=== PATIENT | male | born 2000 | race Asian ===

== ENCOUNTER 2024-05-25 18:08 | Emergency (ER) | payer OTHER, SELFPAY ==
[2024-05-25 18:43] VITALS: BP 173/82; PULSE 57; RESP 19; TEMP 36.9; O2SAT 98; BMI 27.9
--- NOTE | 2024-05-25 19:06 | EDNOTE_ITS ---
ED Wound/Laceration-RME/HPI General Chief Complaint: Wound/Laceration Stated Complaint: LACERATION TO LEFT 3RD FINGER Time Seen by Provider: 05/25/24 19:03 Source: patient Arrival date/time: 05/25/24 18:08 24-year-old male with no past medical history presents emergency department complaining of laceration to left third digit with vp delivery. Patient is unsure if up-to-date with tetanus vaccine. Offered vaccine patient declined. Mode of arrival: ambulatory Limitations: no limitations Related Data Previous Rx's ?Medication ?Instructions ?Recorded cephalexin 500 mg capsule 500 mg PO BID 5 days #10 caps 05/25/24 ibuprofen 600 mg tablet 600 mg PO Q8H PRN pain #20 tabs 05/25/24 Allergies Allergy/AdvReac Type Severity Reaction Status Date / Time No Known Allergies Allergy Verified 05/25/24 18:09 Review of Systems Review of Systems Systems Reviewed: All systems reviewed, normal except as documented Constitutional Constitutional: Reports system reviewed and no additional complaints, except as documented, Denies body ache(s), Denies chills and Denies fever(s) Eyes Eyes: Reports system reviewed and no additional complaints, except as documented and Denies change in vision ENT Ears, Nose, Mouth, and Throat: Reports system reviewed and no additional complaints, except as documented, Denies disequilibrium, Denies dizziness, Denies sore throat and Denies vertigo Cardiovascular Cardiovascular: Reports system reviewed and no additional complaints, except as documented, Denies chest pain and Denies dyspnea Respiratory Respiratory: Reports system reviewed and no additional complaints, except as documented, Denies chest congestion, Denies cough and Denies dyspnea Gastrointestinal Gastrointestinal: Reports system reviewed and no additional complaints, except as documented, Denies abdominal pain, Denies nausea and Denies vomiting Musculoskeletal Musculoskeletal: Reports system reviewed and no additional complaints, except as documented, Denies abnormal gait and Denies arthralgias Integumentary/Breasts Skin/Breast: Reports system reviewed and no additional complaints, except as documented, Denies erythema, Denies rash and Reports wounds (Laceration) Neurologic Neurologic: Reports system reviewed and no additional complaints, except as documented, Denies abnormal gait, Denies disequilibrium, Denies dizziness and Denies vertigo Past Medical History Past Medical History CARDIAC: Negative Congestive Heart Failure RESPIRATORY: Negative Chronic Obstructive Pulmonary Disease (COPD) GENITOURINARY: Negative Renal Disease ENDOCRINE: Negative Diabetes Mellitus Type 1 or Diabetes Mellitus Type 2 Social History SMOKING STATUS: Never smoker ED Exam General Limitations: Present no limitations General appearance: Present alert and in no apparent distress Head Head exam: Present atraumatic Eye Eye exam: Present normal appearance, PERRL and EOMI ENT ENT exam: Present normal exam, normal oropharynx and mucous membranes moist Neck Neck exam: Present normal inspection, full ROM and trachea midline Chest Chest inspection: Present normal inspection and symmetric chest wall rise Respiratory Respiratory exam: Present normal lung sounds bilaterally Cardiovascular Cardiovascular exam: Present regular rate, normal rhythm and normal heart sounds Abdominal Exam Abdominal exam: Present soft and normal bowel sounds Extremities Exam Extremities exam: Present normal inspection and full ROM Expanded Upper Extremity Exam Hand exam: Present laceration Hand L/R front image: 2 1. laceration Vascular exam: Normal capillary refill Back Exam Back exam: Present normal inspection and full ROM Neurological Exam Neurological exam: Present alert, oriented X3 and CN II-XII intact Psychiatric Psychiatric exam: Present normal affect and normal mood Skin Skin exam: Present warm, dry and normal color Course Quality Measures none Orders Category Date Time Status Set Up Suture Tray STAT Care 05/25/24 19:06 Completed Wound Care [Wound Care] NOW Care 05/25/24 19:06 Completed Lidocaine 1% 20 ml [Xylocaine 1% 20 ML] Med 05/25/24 19:06 Discontinued 20 ml INFL X1 ONE Vital Signs Vital signs: Vital Signs Temperature 98.4 F 05/25/24 18:43 Pulse Rate 57 L 05/25/24 18:43 Respiratory Rate 19 05/25/24 18:43 Blood Pressure 173/82 H 05/25/24 18:43 Pulse Oximetry (%) 98 05/25/24 18:43 Oxygen Delivery Method Room Air 05/25/24 18:43 98% room air within normal limits Procedures -ED Laceration Laceration 1: Site: hand (Right third) Side (If applicable): right Size (cm): 3 Description: flap Depth: simple, single layer Local Anesthetic: lidocaine 1% Amount of anesthesia used (mL): 1 Pre-repair: wound explored and irrigated extensively Skin layer closed with: nylon Size (cm): 5-0 Number of sutures: 4 Technique: simple, interrupted Wound / Laceration MDM Narrative MDM Narrative:: 24-year-old male with no past medical history presents emergency department complaining of laceration to left third digit with vp delivery. Patient is unsure if up-to-date with tetanus vaccine. Offered vaccine patient declined. Laceration irrigated with normal saline. Verbal consent obtained and laceration was approximated with 4 simple interrupted sutures using 5-0 Ethilon and 1% lidocaine local anesthetic was used. Patient tolerated well. Patient affected digit neurovascularly intact with full active range of motion and no tendon involvement. Patient discharged home and instructed to return to ER or primary care provider's office for suture removal in 5 days. Patient sent home with prophylactic antibiotics. Instructed to return to emergency department for any worsening signs of infection or as needed. Patient data External records reviewed:: [facility] previous records Clinical information provided by:: patient Social determinants that could affect healthcare access:: none Patient has the following chronic illnesses:: N/A How is presenting disease/condition affected by chronic disease/condition?: no chronic disease Evaluation data The following diagnostics were reviewed and interpreted by me:: other (specify) (N/A) Lab and/or radiology exams considered but not ordered:: N/A Interpretation Summary: N/A Medications / Prescriptions Medications or Prescriptions considered but not ordered:: Ordered Medication administrations:: Medication Administration History Discontinued Medications Lidocaine HCl (Lidocaine Hcl 1% 20 Ml Vial) 20 ml INFL X1 ONE Stop: 05/25/24 19:07 Last Admin: 05/25/24 20:45 Dose: 20 ml Documented By: MINH Comments: ADMIN BY LUIS M Given Consultations Consultation(s) initiated? (list below): No Diagnosis Wound Differential Diagnosis: laceration Most likely diagnosis given after review of the tests above:: Laceration Admission Indicated Admission indicated?: not indicated Admission Request Was there a request for admission?: No Disposition Plan Disposition Plan: Discharge Discharge Attestation Discharge Attestation: The patient and all family members were given an opportunity to ask questions and understood the discharge instructions. Discharge instructions specifically effects, indications for sooner follow up or return to the emergency department, and the expected course of current diagnosis. Patient condition: Stable Discharge Plan Plan Patient Disposition: HOME (Self Care) Disposition Comment: Stable Prescriptions/Referrals Prescriptions/Med Rec: New cephalexin 500 mg capsule 500 mg PO BID 5 Days Qty: 10 0RF ibuprofen 600 mg tablet 600 mg PO Q8H PRN (Reason: pain) Qty: 20 0RF Referrals: Estela Strauss MD [Primary Care Provider] - In 1 week Problem List Clinical Impression: Laceration Patient/Caregiver Discharge Instructions Discharge Activity: activity as tolerated Additional Instructions: Take medication as prescribed. Keep dressing for the first 24 hours. May wash with warm water and soap. After 24 hours keep open to air clean and dry. Return to emergency department or primary care provider for suture removal in 7 to 10 days. Return to emergency department for any worsening symptoms or signs of infection. Follow-up with Workmen's Compensation doctor. Print Language: [place] Stand Alone Forms: Brianna Award Info., Patient Portal Info Letter PA/JUNIOR STAFF ACCOUNTANT Supervising Physician PA/JUNIOR STAFF ACCOUNTANT Supervising Physician: Dr. Dion PETERSON Attestation MD Attestation The patient was seen by the midlevel practitioner. I, the co-signing physician, was present during the entire ER visit. While I did not physically examine the patient, I was available for consultation as needed.
[2024-05-25] MEDS: LIDOCAINE HCL 1% 20 ML VIAL INFL (20:45)
[2024-05-25 22:13] VITALS: BP 125/64; PULSE 62; RESP 18; TEMP 36.2; O2SAT 99
== END 2024-05-25 22:14 | disposition home or self-care (01) ==
PROVIDERS: Emergency Provider Emergency Medicine; PCP Internal Medicine
DX: S61.213A Laceration without foreign body of left middle finger without damage to nail, initial encounter (principal); W29.0XXA Contact with powered kitchen appliance, initial encounter
CPT/HCPCS: 12002; 99283; J3490